=== PATIENT | female | born 1980 | race Asian ===

== ENCOUNTER 2023-10-04 12:09 | Outpatient (AMB) | payer OTHER, SELFPAY ==
--- NOTE | 2023-10-04 12:13 | MHC.PC.OV ---
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 ?? Prior PCP:? Last PCP in [place] 2020 Last office visit/CPE:? Acute issue(s):? Questions re having a baby ?? PMHx:? Psoriasis. SurgHx:? FHx:? Mom: HTN. Dad: DM, CAD, [place]. mom's Aunt Breast CA SocHx:?nonsmoker. EtOH 1 drHakeem on special occassions. No drugs PFSH Surgical History (Updated 10/04/23 @ 12:29 by Patrica Melton CMA) Hx of section (11/26/19) Family History (Updated 10/04/23 @ 12:32 by Patrica Melton CMA) Mother Hypertension Father Diabetes Cardiovascular disease Paternal Grandmother Hypertension Paternal Grandfather Cardiovascular disease Diabetes Social History Housing: Condominium Patient Tobacco Use Status: Never used Tobacco e-Cigarette/Vaping Use: Never Used Current occupational status: unemployed Cognitive needs: No Hearing needs: No Vision needs: Yes Questionnaire PHQ-9 Over the last 2 weeks, how often have you been bothered by any of the following problems? 1. Little interest or pleasure in doing things: not at all 2. Feeling down, depressed, or hopeless: not at all 3. Trouble falling or staying asleep, or sleeping too much: not at all 4. Feeling tired or having little energy: not at all 5. Poor appetite or overeating: not at all 6. Feeling bad about yourself - or that you are a failure or have let yourself or your family down: not at all 7. Trouble concentrating on things, such as reading the newspaper or watching television: not at all 8. Moving or speaking so slowly that other people could have noticed. Or the opposite - being so fidgety or restless that you have been moving around a lot more than usual: not at all 9. Thoughts that you would be better off or of hurting yourself in some way: not at all Total score: 0 Depression Screening Interpretation: Negative Depression Screening Done: Yes 96387 - PHQ-9 Billing: Yes Source: Developed by Drs. Gabriel Heck, Marixa Dean, Neri Blunt and colleagues, with an educational elizabeth from [employer] Thrive Questionnaire Date Thrive assessed: 10/04/23 I am a: Patient What is your living situation today?: I have a steady place to live Within the past 12 months, did the food you bought not last and you didn't have the money to get more?: Never true Within the past 12 months, did you worry whether your food would run out before you got money to buy more?: Never true Do you have trouble paying for medicines?: No Do you have trouble getting transportation to medical appointments?: Yes Do you have trouble paying your heating and electricity bill?: No Do you have trouble taking care of your child, family member or friend?: No Do you have trouble with day-to-day activities such as bathing, preparing meals, shopping, managing finances, etc.?: No Are you currently unemployed and looking for a job?: No Are you interested in more education?: No THRIVE Score: 1 AUDIT C Alcohol Use Questionnaire (AUDIT-C) 1. How often do you have a drink containing alcohol?: Never 3. How often do you have six or more drinks on one occasion?: Never Total Score: 0 CONOR-7 AMB Questionnaire CONOR-7 Date CONOR - 7 assessed: 10/04/23 Feeling nervous, anxious, or on edge: 0 = Not at all Not being able to stop or control worryin = Not at all Worrying too much about different things: 0 = Not at all Trouble relaxin = Not at all Being so restless that it is hard to sit still: 0 = Not at all Becoming easily annoyed or irritable: 0 = Not at all Feeling afraid as if something awful might happen: 0 = Not at all Total CONOR-7 score (0-4 normal; 5-9 mild; 10-14 moderate; 15-21 severe): 0 Source: Developed by Drs. Gabriel Heck, Marixa Dean, Neri Blunt and colleagues, with an educational elizabeth from [employer] CONOR-7 Assessment Billing CONOR-7 Assessment Tool: CONOR-7 Assessment 61226 Review of Systems Const Denies chills, Denies fatigue, Denies fever(s), Denies headache(s) and Denies weakness ENT Denies dizziness and Denies headache(s) Card Denies chest pain, Denies lightheadedness, Denies dyspnea and Denies other (Palpitations) Resp Denies cough, Denies dyspnea, Denies wheezing and Denies other ( shortness of breath) Musc Denies numbness and Denies tingling Neuro Denies dizziness, Denies headache(s), Denies numbness, Denies tingling, Denies paresthesias and Denies weakness Psych Denies anxiety and Denies depression Endo Denies fatigue Aller/Immun Denies wheezing Physical exam (Primary Care) Vital Signs: Last Vital Signs Pulse 84 10/04/23 12:14 BP 104/70 10/04/23 12:14 Pulse Ox 99 10/04/23 12:14 Oxygen Delivery Method Room Air 10/04/23 12:14 BMI result Body Mass Index 26.9 Tobacco/Smoking Status: Tobacco use Status Tobacco use date assessed 10/04/23 10/04/23 12:18 Patient Tobacco Use Status Never used Tobacco 10/04/23 12:18 e-Cigarette/Vaping Use Never Used 10/04/23 12:18 Depression Screening Interpretation: Negative Const General: no acute distress and well developed Nutritional Appearance: well nourished Orientation/consciousness: patient oriented x3 HENMT Head: Yes normocephalic and Yes atraumatic Eyes General: appearance normal, both eyes and all related structures Pupils: Equal, round and reactive pupils present EOM: EOMs intact bilaterally Resp Effort & Inspection: normal respiratory effort Auscultation: clear to auscultation bilaterally Cardio Rate: regular rate Rhythm: regular rhythm Heart sounds: S1 normal heart sound present, S2 normal heart sound present, no gallops, no murmurs and no rubs Neuro General: patient oriented x3 and gait normal Cranial nerves: Yes Equal, round and reactive pupils present Psych Affect: normal affect Assessment and Plan Assessment & Plan (1) Family planning: Code(s): Z30.09 - Encounter for other general counseling and advice on contraception Plan: Patient?is?interested?in?having?another?child. We?discussed?that?although?it?is?not?impossible,?she?would?be?at?higher?risk?due?to?her?age. Referred?to?thread singer?to?consult?for?family?planning?as?well?as?screening?for?cervical?cancer. (2) Psoriasis: Code(s): L40.9 - Psoriasis, unspecified Plan: Currently?stable She?can?let?me?know?if?she?is?getting?flare-ups?and?I?can?make?referral?to?Dermatology. She?does?note?that?she?does?not?like?using?the?creams?that?dermatology?had?recommended?but?we?could?ask?them?to?consult?for?other?treatments. (3) Screening for cervical cancer: Code(s): Z12.4 - Encounter for screening for malignant neoplasm of cervix Plan: As?above,?referred?to?thread singer (4) Vision changes: Code(s): H53.9 - Unspecified visual disturbance Plan: Vision?changes?and?patient?requests?referral?to?Ophthalmology Refer (5) Back pain: Code(s): M54.9 - Dorsalgia, unspecified Plan: Twinges?of?back?pain,?intermittently?and?associated?with?menstruation Patient?attributes?this?to?her epidural?with?prior? More?likely?back?pain?is?due?to?menstruation?and?or?muscle?strain Advised?ice/heat,?NSAIDs?and?gentle?stretching If?not?improving?could?refer?to?physical?therapy (6) Laboratory exam ordered as part of routine general medical examination: Code(s): Z00.00 - Encounter for general adult medical examination without abnormal findings Plan: Check?labs Orders: Orders Comprehensive [place]. Panel Fast Today Z00.00 - Encounter for general adult medical examination without abnormal findings Complete Blood Count Auto Diff Today Z00.00 - Encounter for general adult medical examination without abnormal findings Lipid Panel Today Z00.00 - Encounter for general adult medical examination without abnormal findings TSH reflex Free T4 Today Z00.00 - Encounter for general adult medical examination without abnormal findings UA and rflx microscopic Today Z00.00 - Encounter for general adult medical examination without abnormal findings Vitamin D 25-OH Total Today E55.9 - Vitamin D deficiency, unspecified Microalbumin, Random (w Creat) Today I10 - Essential (primary) hypertension Vitamin B12 and Folate Today E53.8 - Deficiency of other specified B group vitamins Referrals Ophthalmology Referral H53.9 - Unspecified visual disturbance SENIOR HEALTH CONSULTANT Referral Z12.4 - Encounter for screening for malignant neoplasm of cervix, Z30.09 - Encounter for other general counseling and advice on contraception Coding Level of Care Code New Pt Level 3 (34164) Diagnoses Family planning Z30.09 Psoriasis L40.9 Screening for cervical cancer Z12.4 Vision changes H53.9 Back pain M54.9 Laboratory exam ordered as part of routine general medical examination Z00.00 Additional Codes CONOR-7 Assessment Billing - CONOR-7 Assessment Tool: CONOR-7 Assessment 90684 ([id number])
[2023-10-04 12:14] VITALS: BP 104/70; PULSE 84; O2SAT 99; BMI 26.9
== END 2023-10-04 12:52 | disposition home or self-care (01) ==
PROVIDERS: PCP Family Medicine; Visit Provider Family Medicine
DX: M54.9 Dorsalgia, unspecified (principal); L40.9 Psoriasis, unspecified; Z30.09 Encounter for other general counseling and advice on contraception; H53.9 Unspecified visual disturbance
CPT/HCPCS: 99203

== ENCOUNTER 2024-01-24 11:51 | Outpatient (AMB) | payer OTHER, SELFPAY ==
--- NOTE | 2024-01-24 12:13 | A.OFFPC_ITS ---
Vital Signs 01/24/24 12:19 Height 5 ft 1 in Weight 145 lb 8 oz BMI 27.5 BP 108/55 L Blood Pressure Location Rt brachial Respiration 14 Pulse 85 Pulse Source Pulse Oximeter Temp 98.1 F Temp Source Temporal Artery Scan Pulse Oximetry (%) 98 Oxygen Delivery Method Room Air Intake Visit Reasons: CPE with F/u labs and health maint Intake Note: CPE Is last menstrual period known: Yes Last menstrual period: 01/23/24 Post menopausal: No Patient : No Allergies No Known Allergies Allergy (Verified 01/24/24 12:14) Medication List - Last Reconciled 01/24/24 by Austin Cohn MD glutathione mg PO omega 8-smq-pvy-fish oil 60-90-500 mg (Fish Oil) 1 cap PO DAILY Tobacco use date assessed: 01/24/24 Dental Screening Dental Screen Date: 01/24/24 Did you have a dental visit in the last 12 months?: No Did you have a dental problem in the last 6 months where you did not have access to dental care?: Yes Was dental information given to patient?: Patient has dentist HPI CPE with F/u labs and health maint HPI Details 43 y/o female presents for a CPE with f/ u labs and health maintenance. No recent labs to review. Notes she has an appt. with ObGyn in March for family planning. She notes irritability. She works on eating a healthy diet. Walks the dog for exercise. [facility] Surgical History Hx of section (11/26/19) Family History Mother Hypertension Father Diabetes Cardiovascular disease Paternal Grandmother Hypertension Paternal Grandfather Cardiovascular disease Diabetes Social History Housing: Condominium Patient Tobacco Use Status: Never used Tobacco e-Cigarette/Vaping Use: Never Used Current occupational status: unemployed Cognitive needs: No Hearing needs: No Vision needs: Yes Female Reproductive History Menstrual Date of last menstrual period: 01/23/24 Questionnaire PHQ-9 Over the last 2 weeks, how often have you been bothered by any of the following problems? 1. Little interest or pleasure in doing things: not at all 2. Feeling down, depressed, or hopeless: not at all 3. Trouble falling or staying asleep, or sleeping too much: not at all 4. Feeling tired or having little energy: several days (On and off ) 5. Poor appetite or overeating: not at all 6. Feeling bad about yourself - or that you are a failure or have let yourself or your family down: several days (around minstrel cycle ) 7. Trouble concentrating on things, such as reading the newspaper or watching television: not at all 8. Moving or speaking so slowly that other people could have noticed. Or the opposite - being so fidgety or restless that you have been moving around a lot more than usual: not at all 9. Thoughts that you would be better off or of hurting yourself in some way: not at all Total score: 2 Depression Screening Interpretation: Negative Depression Screening Done: Yes 24009 - PHQ-9 Billing: Yes Source: Developed by Drs. Gabriel Heck, Marixa Dean, Neri Blunt and colleagues, with an educational elizabeth from [employer]. Thrive Questionnaire Date Thrive assessed: 01/24/24 I am a: Patient What is your living situation today?: I have a steady place to live Within the past 12 months, did the food you bought not last and you didn't have the money to get more?: Never true Within the past 12 months, did you worry whether your food would run out before you got money to buy more?: Never true Do you have trouble paying for medicines?: No Do you have trouble getting transportation to medical appointments?: No Do you have trouble paying your heating and electricity bill?: No Do you have trouble taking care of your child, family member or friend?: No Do you have trouble with day-to-day activities such as bathing, preparing meals, shopping, managing finances, etc.?: No Are you currently unemployed and looking for a job?: No Are you interested in more education?: Yes Please select the resources that you would like help with: Education Currently or been in a relationship where the following occur: I choose not to answer THRIVE Score: 0 AUDIT C Alcohol Use Questionnaire (AUDIT-C) 1. How often do you have a drink containing alcohol?: Never 3. How often do you have six or more drinks on one occasion?: Never Total Score: 0 CONOR-7 AMB Questionnaire CONOR-7 Date CONOR - 7 assessed: 01/24/24 Feeling nervous, anxious, or on edge: 0 = Not at all Not being able to stop or control worryin = Not at all Worrying too much about different things: 0 = Not at all Trouble relaxin = Not at all Being so restless that it is hard to sit still: 0 = Not at all Becoming easily annoyed or irritable: 1 = Several days Feeling afraid as if something awful might happen: 0 = Not at all Total CONOR-7 score (0-4 normal; 5-9 mild; 10-14 moderate; 15-21 severe): 1 Source: Developed by Drs. Gabriel Heck, Marixa Dean, Neri Blunt and colleagues, with an educational elizabeth from [employer]. CONOR-7 Assessment Billing CONOR-7 Assessment Tool: CONOR-7 Assessment 26307 Review of Systems Const Denies chills, Denies fatigue, Denies fever(s), Denies headache(s) and Denies weakness Eyes Denies change in vision ENT Denies dizziness, Denies headache(s), Denies hearing loss, Denies nasal congestion, Denies sinus pain, Denies sinus pressure and Denies sore throat Card Denies chest pain, Denies lightheadedness, Denies dyspnea and Denies other (palpitations) Resp Denies cough, Denies dyspnea and Denies wheezing GI Denies abdominal pain, Denies melena, Denies hematochezia, Denies change in bowel habits, Denies dyspepsia and Denies nausea Denies hematuria and Denies dysuria Musc Denies abnormal gait, Denies myalgias, Denies arthralgias, Denies numbness and Denies tingling Skin/Breast Denies rash, Denies unusual bruising and Denies wounds Neuro Denies abnormal gait, Denies dizziness, Denies headache(s), Denies memory loss, Denies numbness, Denies Sensory deficit (Neuro), Denies tingling and Denies weakness Psych Denies anxiety, Denies depression and Denies memory loss Endo Denies cold intolerance, Denies fatigue, Denies heat intolerance, Denies polydipsia and Denies polyuria Brandon/Lymph Denies easy bleeding and Denies easy bruising Aller/Immun Denies wheezing Physical exam (Primary Care) Vital Signs: Last Vital Signs Temp 98.1 F 01/24/24 12:19 Pulse 85 01/24/24 12:19 Resp 14 01/24/24 12:19 BP 108/55 L 01/24/24 12:19 Pulse Ox 98 01/24/24 12:19 Oxygen Delivery Method Room Air 01/24/24 12:19 BMI result Body Mass Index 27.5 Tobacco/Smoking Status: Tobacco use Status Tobacco use date assessed 01/24/24 01/24/24 12:22 Patient Tobacco Use Status Never used Tobacco 01/24/24 12:22 e-Cigarette/Vaping Use Never Used 01/24/24 12:22 PHQ-9: PHQ-9 Score PHQ-9: Total score 2 01/24/24 12:22 Depression Screening Interpretation: Negative Thrive Assessment: Date of Thrive Assessment Date Thrive assessed 01/24/24 01/24/24 12:22 Currently or been in a relationship where the following occur: I choose not to answer Const General: no acute distress, well developed, alert and awake Nutritional Appearance: well nourished Orientation/consciousness: patient oriented x3 HENMT Head: Yes normocephalic and Yes atraumatic Ears: hearing grossly normal bilaterally and TM's normal bilaterally General nose exam: Normal external nose present and Normal nares present Mouth: Normal oral and palatal mucosa present and moist mucous membranes Teeth and gingiva: dentition normal Throat: Yes posterior oropharynx normal Eyes General: appearance normal, both eyes and all related structures Pupils: Equal, round and reactive pupils present and Pupil accommodation reflex normal EOM: EOMs intact bilaterally Neck Neck: Yes normal visual inspection, Yes no lymphadenopathy and Yes trachea midline Thyroid: Thyroid normal Carotids: no bruits Lymphatic: no lymphadenopathy noted Chest Chest palpation & inspection: normal inspection of the chest Resp Effort & Inspection: normal respiratory effort Auscultation: clear to auscultation bilaterally Cardio Rate: regular rate Rhythm: regular rhythm Heart sounds: S1 normal heart sound present, S2 normal heart sound present, no gallops, no murmurs and no rubs Bruits: no abdominal aortic bruits and no carotid bruits GI Palpation (GI): No Abdominal aortic bruit present, Soft to palpation, nontender, No hepatosplenomegaly present and No Rebound tenderness present Auscultation: normal bowel sounds General: Yes no CVA tenderness Back/Spine/Pelvis Back: no CVA tenderness Cervical Spine: cervical ROM normal and No Cervical spine tenderness Thoracic/Lumbar Spine: thoraco-lumbar ROM normal, No pain with thoraco-lumbar ROM, No thoracic spinal tenderness and No lumbar spinal tenderness Skin Lesions: no lesions Rashes: no rashes Trauma: no lacerations or abrasions Wounds: no wounds Nails: normal Neuro General: patient oriented x3 Cranial nerves: Yes Equal, round and reactive pupils present Cognition (Neuro): normal cognition Gait exam (Neuro): Normal gait present Motor exam (neuro): 5/5 motor strength present throughout Sensory Exam: No Sensory deficit (Neuro) Deep tendon reflexes (DTR's): Right patellar reflex intensity grade: 2+ and Left patellar reflex intensity grade: 2+ Extrem General: Yes normal to inspection and No edema Psych Appearance: grossly normal Affect: normal affect Attitude: cooperative Thought process: Normal thought process present Coding Level of Care Code Est Pt Prev Care 40-64y(03042) Diagnoses Adult general medical examination Z00.00 Family planning Z30.09 Irritability R45.4 Screening for colon cancer Z12.11 Breast cancer screening by mammogram Z12.31 Screening for cervical cancer Z12.4 Additional Codes CONOR-7 Assessment Billing - CONOR-7 Assessment Tool: CONOR-7 Assessment 37094 ([id number]) PHQ-9 - 48652 - PHQ-9 Billing: Yes ([id number]) Assessment & Plan Assessment & Plan (1) Adult general medical examination: Code(s): Z00.00 - Encounter for general adult medical examination without abnormal findings Category: Medical Plan: 43-year-old?female?presents?for?complete?physical?exam Encouraged?healthy?diet?with?active?lifestyle?and?plenty?of?exercise (2) Family planning: Code(s): Z30.09 - Encounter for other general counseling and advice on contraception Category: Social Hx Plan: Patient?is?43?and?interested?in?getting? She?is?already?referred?to?OBGYN?and?has?an?appointment?in?March. We?discussed?that?she?would?be?high?risk. Monitor?menstruation?and?can?use?home??test.??Call?OBGYN?if?home?pregna ncy?test?is?positive?as?she?should?have?sooner ?care?due?to?her?advanced?age. (3) Irritability: Code(s): R45.4 - Irritability and anger Category: Medical Plan: Will?ask?the?nurse?navigator?to?help?connect?her?with?a?therapist (4) Screening for colon cancer: Code(s): Z12.11 - Encounter for screening for malignant neoplasm of colon Category: Medical Plan: Referred?to?Gastroenterology?for?1st?screening?colonoscopy (5) Breast cancer screening by mammogram: Code(s): Z12.31 - Encounter for screening mammogram for malignant neoplasm of breast Category: Medical Plan: Due?for?mammogram Ordered (6) Screening for cervical cancer: Code(s): Z12.4 - Encounter for screening for malignant neoplasm of cervix Category: Medical Plan: Patient?is?already?referred?to OBGYN Orders: Orders MM tomosynthesis screening BI Today Z12.31 - Encounter for screening mammogram for malignant neoplasm of breast Referrals Gastroenterology Referral Z12.11 - Encounter for screening for malignant neoplasm of colon Nurse Navigator Referral R45.4 - Irritability and anger
[2024-01-24 12:19] VITALS: BP 108/55; PULSE 85; RESP 14; TEMP 36.7; O2SAT 98; BMI 27.5
== END 2024-01-24 12:57 | disposition home or self-care (01) ==
PROVIDERS: PCP Family Medicine; Visit Provider Family Medicine
DX: Z00.00 Encounter for general adult medical examination without abnormal findings (principal); R45.4 Irritability and anger; Z12.11 Encounter for screening for malignant neoplasm of colon; Z12.31 Encounter for screening mammogram for malignant neoplasm of breast

== ENCOUNTER → 2024-01-24 11:51 | Outpatient (BNVA) | payer OTHER, SELFPAY | PROVIDERS: PCP Family Medicine; Visit Provider Family Medicine | DX: Z00.00 Encounter for general adult medical examination without abnormal findings (principal); R45.4 Irritability and anger | CPT/HCPCS: 96127 ==

== ENCOUNTER 2024-02-19 10:18 | Outpatient (REF) | payer OTHER, SELFPAY ==
[2024-02-19 11:20] LABS: MANUAL DIFF FLAG NO
[2024-02-19 11:24] LABS: Appearance Urine Cloudy; Color Urine Yellow; Glucose Urine UA Negative (Negative); Leukocyte Esterase Urine Negative (Negative); Nitrite Urine Negative (Negative); PH 6.5 (5.0-9.0); Specific Gravity - Urine 1.025 (1.005-1.025); UMIC TRIGGER UA YES; Urine Blood Moderate (2+) (Negative); Urine Ketones Trace mg/dL (Negative); Urine Protein Trace mg/dL (Neg-Trace)
[2024-02-19 11:25] LABS: Basophils Absolute Auto 0.1 X10*3/uL (0.0-0.2); Basophils Percent Auto 1.1 % (0-2); Eosinophils Absolute Auto 0.2 X10*3/uL (0.0-0.4); Eosinophils Percent Auto 3.1 % (0-4); Hematocrit 38.6 % (37.0-47.0); Hemoglobin 13.3 g/dl (12.0-16.0); Imm Gran Abs Auto 0.02 X10*3/uL (0.00-0.03); Imm Gran Pct Auto 0.3 % (0.0-0.4); Lymphocytes Absolute Auto 1.9 X10*3/uL (1.2-4.9); Lymphocytes Percent Auto 30.3 % (20-40); Mean Corpuscular HGB Conc 34.5 g/dl (31.0-35.0); Mean Corpuscular Hemoglobin 31.2 pg (27.0-33.0); Mean Corpuscular Volume 90.6 fL (80.0-98.0); Mean Platelet Volume 9.3 fL (9.4-12.3); Monocytes Absolute Auto 0.5 X10*3/uL (0.1-1.2); Monocytes Percent Auto 7.5 % (2-11); Neutrophils Absolute Auto 3.6 x10*3/uL (2.0-8.3); Neutrophils Percent Auto 57.7 % (45-73); Platelet Count 273 X10*3/uL (160-400); Red Blood Count 4.26 X10*6/uL (4.20-5.50); Red Cell Distribution Width 12.4 % (11.0-16.0); White Blood Count 6.2 X10*3/uL (4.8-10.8)
[2024-02-19 11:27] LABS: Bacteria Urine None Seen (None Seen); Hyaline Casts Urine 0-2 /LPF (0-2); RBC Urine >20 /HPF (0-2); WBC Urine 0-5 /HPF (0-5)
[2024-02-19 11:41] LABS: Creatinine Urine 220.87 mg/dL; Microalbum/Creatinine Ratio Ur 10.8 ug/mg cr (<30)
[2024-02-19 12:12] LABS: Alanine Aminotransferase 16 U/L (0-31); Albumin Level 4.5 g/dL (3.5-5.0); Alkaline Phosphatase 55 U/L (39-117); Anion Gap 8 (12-20); Aspartate Amino Transferase 20 U/L (5-31); Bilirubin Total 1.1 mg/dL (0.0-1.0); Blood Urea Nitrogen 10 mg/dL (9-16); Calcium 9.4 mg/dL (8.4-10.2); Carbon Dioxide 28 mmol/L (22-29); Chloride 107 mmol/L (96-108); Cholesterol 210 mg/dL (<200); Estimated Glomerular Filt Rate > 60; Glucose Fasting 93 mg/dL (60-99); HDL Cholesterol 62 mg/dL (>40); LDL Cholesterol Calculated 130 mg/dL (<100); Potassium 3.5 mmol/L (3.3-5.1); Sodium 139 mmol/L (135-145); Total Protein 7.6 g/dL (6.5-8.0); Triglycerides 91 mg/dL (<150)
[2024-02-19 12:23] LABS: Folate 14.9 ng/mL (> or = 4.0); Vitamin B12 828 pg/mL (200-900)
[2024-02-19 12:29] LABS: TSH reflex Free T4 1.42 uIU/mL (0.32-4.0); Vitamin D 25-OH Total 28.8 ng/mL (>30)
--- OUTSIDE RECORDS SUMMARY | 2024-02-20 00:17 | XMS_ITS | Continuity of Care Document ---
Author Name [facility] Organization [facility] Care Team Providers Care Head Mva Reactor Operator Name Role Phone [facility] Unavailable Unavailable Vital Signs Combined list of inpatient and outpatient Vital Signs from Department of Defense and Veterans Affairs, ranging from 12 months to all on record, depending upon the facility. Vital Sign Value Date Comments Source No data available for this section Ambulatory Pharmacy Encounters Combined list of: 1) Encounters from Department of Veterans Affairs facilities going back up to thelast 18 months. 2) Encounters from the Department of Defense facilities going back up to 280 months. Location Location Details Encounter Type Encounter Number Reason For Visit Attending Provider ADM Date DC Date Status Disposition Source [place] [facility]) TELE CONSULT [id number] Notes Entered by: POOL HSU 04 Nov 2019 1255 ------- ------- ------- ------- -- REFERRA L TO [facility] OB SERVICE S MERVIN ABARCA 11/03 Other Not Elsewhere Classified [place] [facility]) [place] [facility]Obst [facility]) OUTPATIENT [id number] AMA TATI DOLAN 11/08 Released w/o Limitations [place] [facility]Ob [facility]) [place] [facility]) OUTPATIENT [id number] Transfe r in records in [place] MEDELLIN 11/09 Released w/o Limitations [place] [facility]) [place] [facility]) TELE CONSULT [id number] Notes Entered by: CHIARA HOBBS 18 Nov 2019 1415 ------- ------- ------- ------- -- screeni CHIARA Dawson 11/17 Other Not Elsewhere Classified [place] [facility]) [place] [facility]st [facility]) OUTPATIENT [id number] NST JULITOTATI Jaun 11/18 Released w/o Limitations [place] [facility]) [facility] DIRECT TO [facility] MTF FROM OTHER THAN ER OR [facility] [id number] WILLEM JAMIE MEZA 11/24 DISCHARGED HOME [facility] [place] [facility] - in L&D) OUTPATIENT [id number] IOL JAMIE BANGURA 11/24 Admitted [place] [facility]An te-Part um in L&D) [place] [facility]) OUTPATIENT [id number] Hayder CEE MAJILIO A 12/01 Released w/o Limitations [place] [facility]Em [facility]) [place] [facility] [id number] BAL Lawrence 12/15 Released w/o Limitations [place] [facility]) [place] [facility] TELE CONSULT [id number] Notes Entered by: BILL WHITTEN 17 Dec 2019 0937 ------- ------- ------- ------- -- postpar jillian nurse follow up BILL WHITTEN 12/16 Other Not Elsewhere Classified [place] [facility]Con) [place] [facility]) OUTPATIENT [id number] f2f, PP c-secti on del [id number] DEGEESTMING 01/20 Released w/o Limitations [place] [facility]) Procedures Combined list of: 1) Procedures from Department of Veterans Affairs facilities going back up to thelast 18 months, not all VA non-surgical procedures are included; 2) All procedures from the Department of Defense facilities. Procedure Procedure Type Code Date Perfomer Comments Sourc e Ultrasound Obstetric Limited Evaluation Ultrasound Obstetric Limited Evaluation 56839 TATI VILA [facility] Non-Stre Test (___ 0,2) Non-Stress Test (___ 0,2) 24287 TATI VILA [facility] OB Services Antepartum Care Only Subsequent Single Visit OB Services Antepartum Care Only Subsequent Single Visit [id number] EDILBERTO SHELLEY [facility] Postoperative Visit, Without Charge Postoperative Visit, Without Charge [id number] GIACOMO CONLEY DoD Obstetrical Services Care Visit Obstetrical Services Care Visit [id number] MING JIMENEZ [facility] CARE VISIT () 01/21/20 DoD POSTOPERATIVE FOLLOW-UP VISIT, NORMALLY INCLUDED IN THE SURGICAL PACKAGE, INDICATE THAT EVALUATION & MANAGEMENT SERVICE WAS PERFORMED DURING A POSTOPERATIVE PERIOD REASON RELATED ORIGINAL PROCEDURE 12/16/19 DoD INSERTION OF OTHER DEVICE INTO PRODUCTS OF CONCEPTION, VIA NATURAL OR ARTIFICIAL OPENING 11/28/19 DoD INTRODUCTION OF OTHER HORMONE INTO PERIPHERAL VEIN, PERCUTANEOUS APPROACH 11/28/19 DoD MONITORING OF PRODUCTS OF CONCEPTION, CARDIAC RATE, VIA NATURAL OR ARTIFICIAL OPENING 11/28/19 DoD INSERTION OF MONITORING ELECTRODE INTO PRODUCTS OF CONCEPTION, VIA NATURAL OR ARTIFICIAL OPENING 11/28/19 DoD EXTRACTION OF PRODUCTS OF CONCEPTION, LOW, OPEN APPROACH 11/28/19 DoD INTRODUCTION OF ELECTROLYTIC AND WATER BALANCE SUBSTANCE INTO PRODUCTS OF CONCEPTION, VIA NATURAL OR ARTIFICIAL OPENING 11/28/19 DoD POSTOPERATIVE FOLLOW-UP VISIT, NORMALLY INCLUDED IN THE SURGICAL PACKAGE, INDICATE THAT EVALUATION & MANAGEMENT SERVICE WAS PERFORMED DURING A POSTOPERATIVE PERIOD REASON RELATED ORIGINAL PROCEDURE 11/28/19 DoD POSTOPERATIVE FOLLOW-UP VISIT, NORMALLY INCLUDED IN THE SURGICAL PACKAGE, INDICATE THAT EVALUATION & MANAGEMENT SERVICE WAS PERFORMED DURING A POSTOPERATIVE PERIOD REASON RELATED ORIGINAL PROCEDURE 11/27/19 DoD ULTRASOUND, UTERUS, REAL TIME WITH IMAGE DOCUMENTATION, LIMITED (EG, HEART BEAT, PLACENTAL LOCATION, POSITION AND/OR QUALITATIVE AMNIOTIC FLUID VOLUME), 1 OR MORE FETUSES 11/19/19 DoD ULTRASOUND, UTERUS, REAL TIME WITH IMAGE DOCUMENTATION, LIMITED (EG, HEART BEAT, PLACENTAL LOCATION, POSITION AND/OR QUALITATIVE AMNIOTIC FLUID VOLUME), 1 OR MORE FETUSES 11/10/19 [facility] NON-STRESS TEST 11/09/19 DoD No data available for this section Ambulato ry Pharmacy Social History Combined list of available smoking, tobacco, and other social history from Department of Defense and Veterans Affairs facilities. Social History Type Response Date Comment [facility] e This section is an empty social history section. DoD Assessment and Plan Combined list of future care activities from Department of Defense and Veterans Affairs facilities (e.g., assessment and plan notes, appointments, orders, and referrals). Additional future care activities may be listed in the Plan of Care section. Result Assessment and Plan Date Source Assessment and Plan No data available for this section 02/20/2024 Ambulatory Pharmacy Functional Status Combined list of recent functional and cognitive assessments recorded at Department of Defense and Veterans Affairs (VA).VA Functional [place] Measurement (FIM) Scale: 1 = Total Assistance (Subject = 0% +), 2 = Maximal Assistance (Subject = 25% +), 3 = Moderate Assistance (Subject = 50% +), 4 = Minimal Assistance (Subject = 75% +), 5 = Supervision, 6 = Modified [place] (Device), 7 = Complete [place] (Timely, Safely). Assessment Date/Time Source Assessment Type Assessment Skill Assessment Score Assessment Details No data available for this section
== END 2024-02-19 10:19 | disposition home or self-care (01) ==
LOC: HO.WFDLDS 10:18
PROVIDERS: Visit Provider Family Medicine
DX: Z00.00 Encounter for general adult medical examination without abnormal findings (principal); E55.9 Vitamin D deficiency, unspecified; I10 Essential (primary) hypertension; E53.8 Deficiency of other specified B group vitamins
CPT/HCPCS: 36415; 80053; 80061; 81001; 82043; 82306; 82570; 82607; 82746; 84443; 85025

== ENCOUNTER → 2024-02-21 09:17 | Outpatient (AMB) | payer OTHER, SELFPAY ==
--- NOTE | 2024-02-21 09:14 | A.OFFPC_ITS ---
Intake Visit Reasons: f/u labs via telemed Intake Note: Lab results Magazine Supervisor Required: No Allergies No Known Allergies Allergy (Verified 01/24/24 12:14) Tobacco use date assessed: 02/21/24 Dental Screening Dental Screen Date: 01/24/24 HPI f/u labs via telemed HPI Details 43 y/o female presents to review CPE-lab s via telemedicine. Labs drawn 02/19/24. Reviewed labs with pt. Triglcyerides 91. TC 210. LDL 130. HDL 62. Vitamin D mildly low at 28.8. HPI Comments History of Present Illness Details Documentation assistance for Austin Cohn MD, was provided by Christ Carvajal, Automobile Insurance Claim Examiner on 02/21/2024 at 10:24 AM EST. I, Dr. Cohn, have read, observed, and verified documentation. [facility] Surgical History Hx of section (11/26/19) Family History (Updated 02/21/24 @ 09:16 by Beatriz Duran CMA) Mother Hypertension Father Diabetes Cardiovascular disease Paternal Grandmother Hypertension Paternal Grandfather Cardiovascular disease Diabetes Social History (Updated 02/21/24 @ 09:17 by Beatriz Duran CMA) Housing: Condominium Alcohol intake: current Patient Tobacco Use Status: Never used Tobacco e-Cigarette/Vaping Use: Never Used Current occupational status: unemployed Cognitive needs: No Hearing needs: No Vision needs: Yes Questionnaire Thrive Questionnaire Date Thrive assessed: 01/24/24 I am a: Patient What is your living situation today?: I have a steady place to live Within the past 12 months, did the food you bought not last and you didn't have the money to get more?: Never true Within the past 12 months, did you worry whether your food would run out before you got money to buy more?: Never true Do you have trouble paying for medicines?: No Do you have trouble getting transportation to medical appointments?: No Do you have trouble paying your heating and electricity bill?: No Do you have trouble taking care of your child, family member or friend?: No Do you have trouble with day-to-day activities such as bathing, preparing meals, shopping, managing finances, etc.?: No Are you currently unemployed and looking for a job?: No Are you interested in more education?: Yes Please select the resources that you would like help with: Education Currently or been in a relationship where the following occur: I choose not to answer THRIVE Score: 0 CONOR-7 AMB Questionnaire CONOR-7 Date CONOR - 7 assessed: 01/24/24 Source: Developed by Drs. Gabriel Heck, Marixa Dean, Neri Blunt and colleagues, with an educational elizabeth from [employer]. Review of Systems Const Denies chills, Denies fatigue, Denies fever(s), Denies headache(s) and Denies weakness ENT Denies dizziness and Denies headache(s) Card Denies dyspnea Resp Denies cough, Denies dyspnea, Denies wheezing and Denies other (shortness of breath) Musc Denies numbness and Denies tingling Neuro Denies dizziness, Denies headache(s), Denies numbness, Denies tingling and Denies weakness Psych Denies anxiety and Denies depression Endo Denies fatigue Aller/Immun Denies wheezing Physical exam (Primary Care) Tobacco/Smoking Status: Tobacco use Status Tobacco use date assessed 02/21/24 02/21/24 09:16 Patient Tobacco Use Status Never used Tobacco 02/21/24 09:17 e-Cigarette/Vaping Use Never Used 02/21/24 09:17 Thrive Assessment: Date of Thrive Assessment Date Thrive assessed 01/24/24 02/21/24 09:16 Currently or been in a relationship where the following occur: I choose not to answer Telehealth Telehealth Telehealth Platform: Telephone Location of provider rendering services: practice address Location of patient: address on file Patient Identification confirmed using: Name, : Yes Telehealth method: voice only Patient verbally consented to treatment: Yes Patient verbally consented to billing insurance company: Yes Patient informed of any privacy concerns related to visit: Yes Minutes spent on Phone/Video with Pt.: 9 Coding Level of Care Code Tele Est Pt Level 2 (65241) Diagnoses Hypercholesterolemia E78.00 Low vitamin D level R79.89 Screening for colon cancer Z12.11 Screening for cervical cancer Z12.4 Breast cancer screening by mammogram Z12.31 Assessment & Plan Assessment & Plan (1) Hypercholesterolemia: Code(s): E78.00 - Pure hypercholesterolemia, unspecified Category: Medical Plan: LDL?cholesterol?is?high. HDL?ratios?are?good Encouraged?a?diet?lower?in?saturated?fats?and?cholesterol.??Encourage d?weight?control?and?exercise Will?recheck?with?her?next?blood?draw?prior?to?next?year's?physical (2) Low vitamin D level: Code(s): R79.89 - Other specified abnormal findings of blood chemistry Category: Medical Plan: Slightly?low?vitamin-D?level. Advised?OTC?vitamin-D?supplement (3) Screening for colon cancer: Code(s): Z12.11 - Encounter for screening for malignant neoplasm of colon Category: Medical Plan: Patient?has?been?contacted?by?Gastroenterology?yet.??I?gave?her?the?phone?number (4) Screening for cervical cancer: Code(s): Z12.4 - Encounter for screening for malignant neoplasm of cervix Category: Medical Plan: She?has?an?appointment?with?[facility]?in?March (5) Breast cancer screening by mammogram: Code(s): Z12.31 - Encounter for screening mammogram for malignant neoplasm of breast Category: Medical Plan: Mammogram?was?ordered She?has?an?appointment?in?early?March
--- OUTSIDE RECORDS SUMMARY | 2024-02-21 09:20 | XMS_ITS | Continuity of Care Document ---
Author Name [facility] Organization [facility] Care Team Providers Care Drying Frame Operator Name Role Phone [facility] Unavailable Unavailable [...] Disposition Source [place] [facility]) TELE CONSULT [id number] Notes Entered by: POOL HSU 04 Nov 2019 1255 ------- ------- ------- ------- -- REFERRA L TO [facility] OB SERVICE S MERVIN ABARCA 11/03 Other Not Elsewhere Classified [place] [facility] H M[facility]B [facility]) [place] [facility]Obst [facility]) OUTPATIENT [id number] AMA TATI DOLAN 11/08 Released w/o Limitations [place] [facility]Ob [facility]) [place] [facility]) OUTPATIENT [id number] Transfe r in records in EDILBERTO MEDELLIN 11/09 Released w/o Limitations [place] [facility]) [place] [facility]) TELE CONSULT [id number] Notes Entered by: CHIARA HOBBS 18 Nov 2019 1415 ------- ------- ------- ------- -- screeni CHIARA Dawson 11/17 Other Not Elsewhere Classified [place] [facility]) [place] [facility]Obst [facility]) OUTPATIENT [id number] NST JULITOTATI Jaun 11/18 Released w/o Limitations [place] [facility]) [facility] DIRECT TO [facility] MTF FROM OTHER THAN ER OR [facility] [id number] WILLEM JAMIE MEZA 11/24 DISCHARGED HOME [facility] [place] [facility]te - in L&D) OUTPATIENT [id number] IOL JAMIE BANGURA 11/24 Admitted [place] [facility])(An te-Part um in L&D) [place] [facility]) OUTPATIENT [id number] Hayder CEE MAJILIO A 12/01 Released w/o Limitations [place] [facility]Em ergency [facility]) [place] [facility] [id number] BAL Lawrence 12/15 Released w/o Limitations [place] [facility]) [place] [facility] TELE CONSULT [id number] Notes Entered by: BILL WHITTEN 17 Dec 2019 0937 ------- ------- ------- ------- -- postpar jillian nurse follow up BILL WHITTEN 12/16 Other Not Elsewhere Classified [place] [facility]Con) [place] [facility]) OUTPATIENT [id number] f2f, PP c-secti on del [id number] DEGEESTMING 01/20 Released w/o Limitations [place] [facility]) Procedures Combined list of: 1) Procedures from Department of Veterans Affairs facilities going back up to thelast 18 months, not all VA non-surgical procedures are included; 2) All procedures from the Department of Defense facilities. Procedure Procedure Type Code Date Perfomer Comments Sourc e No data available for this section Ambulato ry Pharmacy CARE VISIT () 01/21/20 DoD POSTOPERATIVE FOLLOW-UP [...] FLUID VOLUME), 1 OR MORE FETUSES 11/10/19 DoD NON-STRESS TEST 11/09/19 [facility] Ultrasound Obstetric Limited Evaluation Ultrasound Obstetric Limited Evaluation [address] [facility] Non-Stre Test (___ 0,2) Non-Stress Test (___ 0,2) [address] [facility] OB Services Antepartum Care Only Subsequent Single Visit OB Services Antepartum Care Only Subsequent Single Visit 0502F EDILBERTO SHE[address] [facility] Postoperative Visit, Without Charge Postoperative Visit, Without Charge [id number] [facility] Obstetrical Services Care Visit Obstetrical Services Care Visit 0503F MING JIMENE[address] [facility] Social History Combined list of available smoking, tobacco, and other social history from Department of Defense and Veterans Affairs facilities. Social History Type Response Date Comment Sour e This section is an empty social [...] Plan No data available for this section 02/21/2024 Ambulatory Pharmacy Functional Status Combined list of recent functional and cognitive assessments recorded at Department of Defense and Veterans Affairs (MS).VA Functional [place] Measurement (FIM) Scale: 1 = Total Assistance (Subject = 0% +), 2 = Maximal Assistance (Subject = 25% +), 3 = Moderate Assistance (Subject = 50% +), 4 = Minimal Assistance (Subject = 75% +), 5 = Supervision, 6 = Modified [place] (Device), 7 = Complete [place] (Timely, Safely). Assessment Date/Time Source Assessment Type Assessment Skill Assessment Score Assessment Details No data available for this section
== END ==
LOC: HO.HMCFM 09:18
PROVIDERS: PCP Family Medicine; Visit Provider Family Medicine
DX: E78.00 Pure hypercholesterolemia, unspecified (principal); Z12.11 Encounter for screening for malignant neoplasm of colon; Z12.31 Encounter for screening mammogram for malignant neoplasm of breast

== ENCOUNTER → 2024-02-21 09:17 | Outpatient (BNVA) | payer OTHER, SELFPAY | PROVIDERS: PCP Family Medicine; Visit Provider Family Medicine ==

== ENCOUNTER → 2024-03-13 11:45 | Outpatient (BNV) | payer OTHER, SELFPAY | PROVIDERS: PCP Family Medicine; Visit Provider Internal Medicine | DX: Z12.31 Encounter for screening mammogram for malignant neoplasm of breast (principal) | CPT/HCPCS: 77063; 77067 ==

== ENCOUNTER 2024-03-13 11:56 | Outpatient (REF) | payer OTHER, SELFPAY ==
--- NOTE | ~2024-03-13 | MM_ITS ---
EXAMINATION: MM SCREENING DIGITAL BREAST TOMOSYNTHESIS, BILATERAL CLINICAL INFORMATION: Screening. Asymptomatic. COMPARISON: Mammography: Baseline. TECHNIQUE: Digital breast mammography with tomosynthesis is performed in both the craniocaudal and mediolateral oblique views along with computer-aided detection (CAD). FINDINGS: The breasts are heterogeneously dense, which may obscure small masses (ACR BI-RADS breast composition Category c). There are no significant masses, abnormal calcifications, or other abnormalities. MM/MM tomosynthesis screening BI IMPRESSION: No mammographic evidence of malignancy. ASSESSMENT: BI-RADS BI-RADS 1 - Negative RECOMMENDATION: Routine annual mammography screening. 1 year F/U This examination should not preclude the clinical evaluation of a suspicious palpable abnormality. This patient's information was entered into a reminder system with a target due date for their next mammogram. Electronically signed by: Elana Kumar DO 03/22/2024 09:19 AM VEGA
== END 2024-03-13 11:57 | disposition home or self-care (01) ==
LOC: HO.MAMMO 11:56
PROVIDERS: PCP Family Medicine; Visit Provider Family Medicine
DX: Z12.31 Encounter for screening mammogram for malignant neoplasm of breast (principal)
CPT/HCPCS: 77063; 77067

== ENCOUNTER 2024-05-12 11:45 | Outpatient (AMB) | payer OTHER, SELFPAY ==
--- NOTE | 2024-05-12 11:45 | MHC.OFFVIS ---
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 No complaints. Last Pap/HPV? Last Mammogram was BI-RADS 1 in 04/04 Last screening colonoscopy in 05/05, the recommendation according to the patient was to repeat in 10 years, no records available [facility] Surgical History Hx of section (11/26/19) Family History Mother Hypertension Father Diabetes Cardiovascular disease Paternal Grandmother Hypertension Paternal Grandfather Cardiovascular disease Diabetes Social History Household Members: Spouse Household Members Other:: son Housing: Condominium Alcohol intake: current Patient Tobacco Use Status: Never used Tobacco e-Cigarette/Vaping Use: Never Used Current occupational status: unemployed Sexual orientation: Straight/Heterosexual Gender identity: Female Cognitive needs: No Hearing needs: No Vision needs: Yes Female Reproductive History Menstrual Date of last menstrual period: 04/15/24 control method: none Total pregnancies: 2 Full term: 1 Number of Living Children: 1 Ab spontaneous: 1 Date of Mammogram: 03/13/24 Review of Systems Const All systems reviewed & are unremarkable except as noted in HPI and below Card Reports as per HPI Resp Reports as per HPI GI Reports as per HPI and Reports no additional complaints Reports as per HPI Physical Exam Vital Signs: Last Vital Signs BP 104/60 05/12/24 11:46 BMI result Body Mass Index 28.3 Const General: cooperative, healthy appearing and comfortable Chest Chest palpation & inspection: normal inspection of the chest and normal palpation of entire chest wall Breast/axilla inspection: normal inspection of the breasts and normal inspection of the axillae Breast/axilla palpation: normal palpation of the breasts, normal palpation of the axillae and no axillary lymphadenopathy Resp Effort & Inspection: normal respiratory effort Auscultation: clear to auscultation bilaterally Percussion: percussion normal Cardio Palpation: normal PMI Rate: regular rate Rhythm: regular rhythm Heart sounds: no murmurs and no rubs Peripheral pulses: Peripheral pulses 2+ throughout GI Inspection: Yes normal to inspection Palpation (GI): Soft to palpation, nontender, no guarding, not rigid and No hepatosplenomegaly present Percussion: Yes normal to percussion Auscultation: normal bowel sounds Rectal Exam - Female: deferred General: Yes bladder normal to palpation External Female Exam: No lesion Speculum Exam - Vagina: normal appearance of the vagina, normal palpation, normal vaginal discharge and not erythematous Speculum Exam - Cervix: normal appearance of the cervix and normal palpation Bimanual exam- vagina & uterus: normal bimanual exam, normal palpation, uterine size normal, bladder normal to palpation, consistency normal and normal palpation Bimanual Exam- Adnexa, other: normal adnexae, no masses and no tenderness Assessment & Plan Assessment & Plan (1) Well woman exam: Code(s): Z01.419 - Encounter for gynecological examination (general) (routine) without abnormal findings Category: Medical Plan: Cotesting done. Instructions given the patient to schedule next screening Mammogram in 04/05. Counseled the patient about the recommended dietary allowance of 1000 mg of Calcium & 600 IU of vitamin D. The patient was instructed to perform monthly self-breast exams and to schedule an annual exam in a year; All questions answered and the patient verbalized understanding. Instructed the patient to schedule annual exam in a year Orders: Orders Pap Smear Today Z01.419 - Encounter for gynecological examination (general) (routine) without abnormal findings HPV High risk Today Z01.419 - Encounter for gynecological examination (general) (routine) without abnormal findings Coding Level of Care Code New Pt Prev Care 40-64y(70330) Diagnoses Well woman exam Z01.419
[2024-05-12 11:46] VITALS: BP 104/60; BMI 28.3
--- OUTSIDE RECORDS SUMMARY | 2024-05-12 14:55 | XMS_ITS | Clinical Summary ---
Author Organization [facility] [address] [facility] Address [address] [place] [address] Phone Care Team Providers Care Clamshell Engineer Name Role Phone Austin Cohn MD Primary Care Provider Allergies No known active allergies Medications polyethylene glycol (Golytely) 236-22.74-6.74 -5.86 gram solutionIndicati ons:Colon cancer screening Take 4,000 mL by mouth 1 (one) time for 1 dose. 4000 mL 04/23/2024 Encounters Date Type Department Care Team Description 04/23/2024 9:20 AM EST Office Visit Gastroenterology - [address] [place] [phone] Timmy Mackenzie PA Colon cancer screening (Primary Dx) 04/13/2024 Telephone Gastroenterology - [address] [place] [phone] Minh Mcfadden MD from Last 3 Months Surgical History Surgery Date Site/Laterality Comments SECTION, LOW TRANSVERSE Social History Tobacco Use Types Packs/Day Years Used Date Smoking Tobacco: Never Assessed Comments Unknown Sex and Gender Information Value Date Recorded Sex Assigned at Not on file Legal Sex Female 2:12 PM EST Gender Identity Not on file Sexual Orientation Not on file Obstetrics History Last Filed Vital Signs Vital Sign Reading Time Taken Comments Blood Pressure - - Pulse - - Temperature - - Respiratory Rate - - Oxygen Saturation - - Inhaled Oxygen Concentration - - Weight 65.3 kg (144 lb) 04/23/2024 9:59 AM EST Height 154.9 cm (5' 1 ) 04/23/2024 9:59 AM EST Body Mass Index 27.21 04/23/2024 9:59 AM EST Plan of Treatment Health Maintenance Due Date Last Done Comments Breast Cancer Screening 1978 DTaP,Tdap,and Td Vaccines (1 - Tdap) 1997 Hepatitis B Vaccines (1 of 3 - 19+ 3-dose series) 1997 Cervical Cancer Screening: P ap Smear 1999 COVID-19 Vaccine (1 - 2023-2 5 season) 2023 Influenza Vaccine (#1) 2023 Depression Screening 04/13/2024 HIV Screening 04/13/2024 Hepatitis C Screening 04/13/2024 Social Influencers of Health Screening 04/13/2024 Colorectal Cancer Screening: Colonoscopy 05/01/2034 05/01/2024 HIB Vaccines Aged Out No longer eligi ble based on patient's age to complete this topic HPV Vaccines Aged Out No longer eligi ble based on patient's age to complete this topic Hepatitis A Vaccines Aged Out No long er eligible based on patient's age to complete this topic IPV Vaccines Aged Out No longer eligi ble based on patient's age to complete this topic MMR Vaccines Aged Out No longer eligi ble based on patient's age to complete this topic Meningococcal ACWY Vaccine Aged Out N o longer eligible based on patient's age to complete this topic Meningococcal B Vacine Aged Out No lo nger eligible based on patient's age to complete this topic Pneumococcal Vaccine: Pediat rics (0 to 5 Years) and At-Risk Patients (6 to 64 Years) Aged Out No longer eligi ble based on patient's age to complete this topic RSV Immunization Patients Un homer 20 months Aged Out No longer eligible b ased on patient's age to complete this topic Varicella Vaccines Aged Out No longer eligible based on patient's age to complete this topic Procedures Procedure Name Priority Date/Time Associated Diagnosis Comments EXTERNAL COLONOSCOPY REPORT Routine 05/01/2024 4:25 PM EST from Last 3 Months Results * External Colonoscopy Report (05/01/2024 4:25 PM EST) Anatomical Region Laterality Modality Endoscopy us Historical Provider GI~PROCEDURE ORDERABLES F inal Result from Last 3 Months Insurance [place] [id number] [facility] Care Teams Clamshell Engineer Relationship Specialty Start Date End Date Austin Cohn MD [address] [place] [phone] PCP - General Family Medicine 04/13/24
--- OUTSIDE RECORDS SUMMARY | 2024-05-12 14:55 | XMS_ITS | Encounter Summary ---
Author Organization [facility] Address [address] [place] [address] Care Team Providers Care Prototyper Name Role Phone Austin Cohn MD Primary Care Provider [phone]- [phone] Reason for Visit * Reason Comments Colonoscopy Pre screening Encounter Details Date Type Department Care Team (Late st Contact Info) Description 04/23/2024 9:20 AM EST Office Visit Gastroenterology - [address] [place] [phone] Timmy Mackenzie PA [address] [place] [address] Colon cancer screening (Primary Dx) Social History Tobacco Use Types Packs/Day Years Used Date Smoking Tobacco: Never Assessed Comments Unknown Sex and Gender Information Value Date Recorded Sex Assigned at Not on file Legal Sex Female 2:12 PM EST Gender Identity Not on file Sexual Orientation Not on file documented as of this encounter Last Filed Vital Signs Vital Sign Reading Time Taken Comments Blood Pressure - - Pulse - - Temperature - - Respiratory Rate - - Oxygen Saturation - - Inhaled Oxygen Concentration - - Weight 65.3 kg (144 lb) 04/23/2024 9:59 AM EST Height 154.9 cm (5' 1 ) 04/23/2024 9:59 AM EST Body Mass Index 27.21 04/23/2024 9:59 AM EST documented in this encounter Progress Notes * ANGELY Mckeon - 04/23/2024 9:20 AM EST Subjective Last Colononscopy/EGD: n/a HPI: Sandra Vaughn is a 44 y.o. old female who was referred to us by Austin Cohn MD today forroutine colon cancer screening. She is an overall healthy patient with no GI symptoms or concerns. She denied a family history of colon cancer or colon polyps. This will be her first colonoscopy. Review of Systems Constitutional: Negative. Respiratory: Negative. Cardiovascular: Negative. Gastrointestinal: Negative. Genitourinary: Negative. PROBLEM LIST: There is no problem list on file for this patient. PAST MEDICAL HISTORY: No past medical history on file. PAST SURGICAL HISTORY: Past Surgical History: Procedure Laterality Date SECTION, LOW TRANSVERSE SOCIAL HISTORY: Social History Tobacco Use Smoking status: Not on file Smokeless tobacco: Not on file Substance Use Topics Alcohol use: Not on file FAMILY HISTORY: No family history on file. ACTIVE MEDICATIONS: No current outpatient medications on file. No current facility-administered medications for this visit. ALLERGIES: No Known Allergies Weight: 65.3kg (144lb) BMI: 27.21 Physical Exam Constitutional: Appearance: Normal appearance. HENT: Head: Normocephalic. Cardiovascular: Rate and Rhythm: Normal rate and regular rhythm. Pulmonary: Effort: Pulmonary effort is normal. Breath sounds: Normal breath sounds. Abdominal: General: Bowel sounds are normal. There is no distension. Palpations: Abdomen is soft. There is no mass. Tenderness: There is no abdominal tenderness. There is no guarding or rebound. Skin: General: Skin is warm. Neurological: Mental Status: She is alert and oriented to person, place, and time. Psychiatric: Mood and Affect: Mood normal. Behavior: Behavior normal. IMPRESSION: 1. Colon cancer screening Assessment/Plan Assessment & Plan Colon cancer screening Colonoscopy- first [facility] Colonoscopy reviewed with patient. Risks discussed including bleeding perforation and missed lesions. There is always a chance surgery or transfusion could be required. Prep discussed with patient. Risks of anesthesia reviewed. Patient advised will need a ride home, not to have liquids for at least3 hours prior to the procedure. ANGELY Mckeon 12:43 PM EST documented in this encounter Plan of Treatment Not on file documented as of this encounter Visit Diagnoses Diagnosis Colon cancer screening- Primary Special screening for malignant neoplasms, colon documented in this encounter Care Teams Prototyper Relationship Specialty Start Date End Date Austin Cohn MD [address] [place] [phone] PCP - General Family Medicine 04/13/24 documented as of this encounter
--- OUTSIDE RECORDS SUMMARY | 2024-05-12 14:55 | XMS_ITS | Encounter Summary ---
Author Organization [facility] Address [address] [place] [address] Care Team Providers Care Cover Mat Machine Operator Name Role Phone Austin Cohn MD Primary Care Provider [phone]- [phone] Encounter Details Date Type Department Care Team ([facility] st Contact Info) Description 04/13/2024 Telephone Gastroenterology - [address] [place] [phone] Minh Mcfadden MD [address] [place], [place] [phone] Social History Tobacco Use Types Packs/Day Years Used Date Smoking Tobacco: Never Assessed Comments Unknown Sex and Gender Information Value Date Recorded Sex Assigned at Not on file Legal Sex Female 2:12 PM EST Gender Identity Not on file Sexual Orientation Not on file documented as of this encounter Progress Notes * Vivian Valdovinos - 04/16/2024 1:49 PM EST Spoke with and booked pt for 04.23.24 at 9:20am for OV * Elizabet Perez - 04/13/2024 2:15 PM EST NEW INCOMING REFERRAL, LAST OFFICE VISIT SENT HAVE NO VITALS, IT WAS TELEMED. PT NEEDS OV. documented in this encounter Plan of Treatment Not on file documented as of this encounter Visit Diagnoses Not on filedocumented in this encounter Care Teams Cover Mat Machine Operator Relationship Specialty Start Date End Date Austin Cohn MD [address] [place] [phone] PCP - General Family Medicine 04/13/24 documented as of this encounter
== END 2024-05-12 12:14 | disposition home or self-care (01) ==
LOC: HO.HWS 11:45
PROVIDERS: PCP Family Medicine; Visit Provider Obstetrics & Gynecology
DX: Z01.419 Encounter for gynecological examination (general) (routine) without abnormal findings (principal)
CPT/HCPCS: 99386; 99459

== ENCOUNTER 2024-05-12 11:45 | Outpatient (REF) | payer OTHER, SELFPAY ==
[2024-05-15 14:53] LABS: HPV Genotype 16 Negative (Negative); HPV Genotype 18 Negative (Negative); HPV High Risk Negative (Negative)
== END 2024-05-12 11:46 | disposition home or self-care (01) ==
LOC: HO.LNP 11:45
PROVIDERS: PCP Family Medicine; Visit Provider Obstetrics & Gynecology
DX: Z01.419 Encounter for gynecological examination (general) (routine) without abnormal findings (principal)
CPT/HCPCS: 87626; 88175; 99386; 99459